=== PATIENT | female | born 1955 | race Two or more races ===

== ENCOUNTER 2022-11-28 18:05 | Emergency (ER) | payer OTHER ==
[~2022-11-28] VITALS: Ht 157.5 cm; Wt 60.8 kg
[2022-11-28] MEDS ORDERED: DICLOFENAC SODI75 MG PO (21:50)
[2022-11-28] MEDS ORDERED: CLEOCIN HCL300 MG PO (21:50)
== END 2022-11-28 22:15 | disposition home or self-care (01) ==
LOC: ER 18:05
DX: L02.611 Cutaneous abscess of right foot (principal)